=== PATIENT | female | born 1945 | race Caucasian/White ===

== ENCOUNTER 2020-11-20 07:23 | Day surgery (SDC) | payer MEDICARE ==
[2020-11-19 12:08] VITALS: BMI 40.7
[~2020-11-20 07:23] MED LIST: EPINEPHrine 0.3 MG in Ophthalmic Irrigation Solution 500 ML IRR SCH
[2020-11-20] MEDS ORDERED: Phenylephrine 2.5% Ophth Soln 5 ML BOT ONE (07:41)
[2020-11-20] MEDS ORDERED: Cyclopentolate 1% Opth Drop 2 ML BOT ONE (07:41)
[2020-11-20] MEDS ORDERED: Fentanyl 100 MCG/2 ML VIAL ONE (09:17)
[2020-11-20] MEDS ORDERED: Famotidine/PF 20 mg/2ml Vial ONE (09:18)
[2020-11-20] MEDS ORDERED: Phenylephrine 10 MG/ML VIAL ONE (09:18)
[2020-11-20] MEDS ORDERED: Promethazine HCl 25 MG/ML VIAL ONE (11:14)
[2020-11-20] MEDS ORDERED: Maxitrol 0.1% Opth Oint 3.5 GM TUBE ONE (13:25)
[2020-11-20] MEDS ORDERED: Metoclopramide HCl 10 MG/2 ML VIAL ONE (13:25)
[2020-11-20] MEDS ORDERED: Triamcinolone 40 MG/ML VIAL ONE (13:25)
[2020-11-20] MEDS ORDERED: Bupivacaine PF 0.75% SDV 10 ML ONE (13:25)
[2020-11-20] MEDS ORDERED: PHENYLEPHRINE-NS 100 MCG/ML 10 ML SYRINGE ONE (13:25)
[2020-11-20] MEDS ORDERED: Lidocaine 1% PF 5 ML VIAL ONE ×2 (13:25)
[2020-11-20] MEDS ORDERED: CEFAZOLIN 1 GM VIAL ONE (13:25)
[2020-11-20] MEDS ORDERED: PROPOFOL 200 MG/20 ML VIAL ONE (13:25)
[2020-11-20] MEDS ORDERED: Lidocaine 4% PF 5 ML AMP ONE (13:25)
[2020-11-20] MEDS ORDERED: Ondansetron PF 4 MG/2 ML Vial ONE (13:25)
[2020-11-20] MEDS ORDERED: ePHEDrine 50 MG/ML VIAL ONE (13:25)
[2020-11-20] MEDS ORDERED: Acetylcholine 20 MG/2 ML VIAL (OR CHARGE) ONE (13:25)
--- NOTE | 2020-11-21 15:06 | OP ---
DATE OF PROCEDURE: 11/20/2020 PREOPERATIVE DIAGNOSIS: Dislocated intraocular lens and epiretinal membrane. POSTOPERATIVE DIAGNOSIS: Dislocated intraocular lens and epiretinal membrane. PROCEDURE: Pars plana vitrectomy, membrane peel, and repositioning of intra-ocular lens in the right eye. ANESTHESIA: General endotracheal anesthesia. PROCEDURE IN DETAIL: Patient identified in the preoperative holding area. Appropriate informed consent for the planned surgical procedure on the right eye had been obtained. Patient was transported to the operative suite. General endotracheal anesthesia was initiated. The patient was prepped and draped in usual sterile manner for ophthalmic surgery on the right eye. Lid speculum was placed in the right eye, 25-gauge trocars placed supratemporally, inferotemporally, supranasally. Infusion line was placed inferotemporally. Attention was turned to the dislocated intraocular lens. Paracentesis sites were created at the 10 and 2 o'clock positions. Sinskey hook was introduced into the eye and the lens was subluxated into the anterior chamber. Light pipe and vitreous cutter were inserted to the eye. Core vitrectomy was performed. Residual hemorrhage was removed. Membranes were peeled from the anterior surface of the capsule and the posterior surface of the iris. Peripheral lens material was removed from the posterior segment of the eye. 30-gauge thin-walled needles were inserted into the eye, 2 mm posterior to the limbus at the 10 and 8 o'clock positions and the haptics from the existing [place] 9003 lens were externalized via these needles. The edges were flanged using low temperature cautery and the lens was noted to center well. The peripheral iridectomy was created superiorly using the vitreous cutter and Miochol was injected into the eye constricting the pupil. Indirect ophthalmoscopy was used to exam the retina 360 degrees. No holes, breaks, or tears were identified. Retrobulbar Kenalog, sequential Ancef was placed, antibiotic ointment was placed. Eye was patched and shielded. The patient was taken to the postop recovery unit in good condition having suffered no immediate perioperative complications. Patient was instructed to keep patch and shield on, avoid lifting or bending. Followup with Dr. Erazo. Job ID: [id number]
== END 2020-11-20 12:38 | disposition home or self-care (01) ==
LOC: SDC 07:23
PROVIDERS: ATTEND Ophthalmology Retina Specialist
PROC: 08T43ZZ Resection of Right Vitreous, Percutaneous Approach (ICD-10-PCS; principal; 2020-11-20)
PROC: 08NE3ZZ Release Right Retina, Percutaneous Approach (ICD-10-PCS; 2020-11-20)
PROC: 08SJ3ZZ Reposition Right Lens, Percutaneous Approach (ICD-10-PCS; 2020-11-20)
DX: H35.371 Puckering of macula, right eye (principal); T85.22XA Displacement of intraocular lens, initial encounter; H43.11 Vitreous hemorrhage, right eye; I10 Essential (primary) hypertension; E78.5 Hyperlipidemia, unspecified; G47.30 Sleep apnea, unspecified; M06.9 Rheumatoid arthritis, unspecified; E66.01 Morbid (severe) obesity due to excess calories; Z68.41 Body mass index [BMI] 40.0-44.9, adult; Z79.82 Long term (current) use of aspirin; Z79.84 Long term (current) use of oral hypoglycemic drugs; Z79.899 Other long term (current) drug therapy; Z88.5 Allergy status to narcotic agent
CPT/HCPCS: J0171; J0690; J2370; J2405; J2550; J2704; J2765; J3010; J3301; J3490; S0028

== ENCOUNTER 2021-11-03 10:56 | Outpatient (CLI) | payer MEDICARE | END 2021-11-03 10:57 | disposition home or self-care (01) | LOC: DTY/OP 10:56 | PROVIDERS: ATTEND Family Medicine | DX: E11.9 Type 2 diabetes mellitus without complications (principal) | CPT/HCPCS: 97802 ==

== ENCOUNTER 2025-09-10 15:20 | Outpatient (CLI) | payer MEDICARE | END 2025-09-10 15:21 | disposition home or self-care (01) | LOC: SCSBT 15:20 | PROVIDERS: ATTEND Internal Medicine Rheumatology | DX: M81.0 Age-related osteoporosis without current pathological fracture (principal) | CPT/HCPCS: 77080 ==